=== PATIENT | female | born 1950 | race Caucasian/White ===

== ENCOUNTER → 2016-10-02 | Outpatient (CLI) | payer OTHER | LOC: C.PATHSPEC 14:05 | PROVIDERS: ATTEND Obstetrics & Gynecology | DX: N76.2 Acute vulvitis (principal) ==

== ENCOUNTER → 2016-10-02 | Outpatient (CLI) | payer OTHER ==
[2016-10-02 14:58] LABS: URINE APPEARANCE CLEAR (CLEAR); URINE BILIRUBIN NEG (NEG); URINE COLOR DK YELLOW; URINE NITRITE NEG (NEG); URINE SPECIFIC GRAVITY 1.018 (1.000-1.030); UROBILINOGEN NEG (NEG)
[2016-10-02 15:07] LABS: MANUAL MICROSCOPIC REQUIRED? NO; REVIEW REQ? NO
== END ==
LOC: C.LABSPEC 13:27
PROVIDERS: ATTEND Obstetrics & Gynecology
DX: N76.2 Acute vulvitis (principal)

== ENCOUNTER → 2017-08-07 | Outpatient (CLI) | payer OTHER ==
--- NOTE | 2017-08-07 14:57 | MAMMOGRAPHY REPORT ---
BILATERAL DIGITAL DIAGNOSTIC MAMMOGRAM TOMOSYNTHESIS WITH CAD AND TARGETED LEFT ULTRASOUND: 08/07/2017 CLINICAL HISTORY: The patient reports a palpable lump in her left axilla for some time. TECHNIQUE: Breast tomosynthesis in addition to standard 2D mammography was performed. Current study was also evaluated with a Computer Aided Detection (CAD) system. Bilateral CC and MLO 2-D and tomosy nthesis images were obtained. COMPARISON: Comparison is made to exam dated: 01/18/2016 mammogram - [facility]. BREAST COMPOSITION: There are scattered areas of fibroglandular density in both breasts. FINDINGS: A triangle marker layne the site of the palpable lump pointed out by the patient in the le ft axillary region. The area is only partially visualized on the mammograms due to the far superior location, however, no suspicious mass or other suspicious mammographic abnormalities are seen in this region. The remainder of both breasts are stable compared to the prior exam, without suspicious mas ses, calcifications, or areas of architectural distortion noted. Targeted ultrasound was performed of the site of the palpable lump pointed out by the patient in the left axillary region. Sonographically normal tissue is seen in this region, without evidence of a ma ss or other suspicious sonographic abnormality. IMPRESSION: ACR BI-RADS CATEGORY 2: BENIGN, TARGETED ULTRASOUND ACR BI-RADS CATEGORY 2: BENIGN No suspicious mammographic or sonographic abnormality at the site of the palpable left axillary lump pointed out by the patient. There is no mammographic or targeted sonographic evidence of malignancy. Recommend clinical follow-up and recommend routine bilateral screening mammograms in one year. The patient has been verbally notified of the results. Approximately 10% of breast cancers are not detected with mammography. A negative mammographic report should not delay biopsy if a clinically suggestive mass is present. Judy Mcqueen M.D. ah/:08/07/2017 11:57:32 Roll Clamp Operator: Monique ZAMORA)([place]), [facility] letter sent: Normal 1/2 BI-RADS Code: ACR BI-RADS Category 2: Benign Ultrasound BI-RADS: ACR BI-RADS Category 2: Benign
== END | disposition home or self-care (01) ==
LOC: C.MAMM 11:03
PROVIDERS: ATTEND Obstetrics & Gynecology
DX: N63.20 Unspecified lump in the left breast, unspecified quadrant (principal)

== ENCOUNTER 2017-09-27 12:35 | Emergency (ER) | payer OTHER ==
[~2017-09-27] VITALS: Ht 165.1 cm; Wt 85.0 kg
[2017-09-27 12:38] VITALS: TEMP 36.4; Ht 165.1 cm; Wt 85.0 kg
[2017-09-27] MEDS ORDERED: ESTR10TA PV (12:52)
--- NOTE | 2017-09-27 13:34 | DIAGNOSTIC IMAGING REPORT ---
RIGHT FIFTH TOE 3 VIEWS CLINICAL HISTORY: right 5th toe pain COMPARISON: None DISCUSSION: The toe is in slight flexion. There are mild degenerative changes. No fractures or subluxations are visualized. No destructive lesions are evident on conventional radiographic imaging. IMPRESSION: 1. No fractures or subluxations identified 2. No destructive lesions are visualized Electronically signed by: Sincere Tao M.D. 09/27/2017 1:33 PM Dictated Date/Time: 09/27/2017 1:32 PM
[2017-09-27] MEDS ORDERED: CEPH500C PO (13:43)
[2017-09-27 13:56] VITALS: BP 179/86; PULSE 78; O2SAT 97
--- NOTE | 2017-09-27 15:09 | EMERGENCY ROOM VISIT NOTE ---
History Report prepared by Malu: Ginny Stewart Under the Supervision of: Dr. Adrián Richardson M.D. First contact with patient: 13:05 Chief Complaint: TOE PAIN, INJURY Stated Complaint: R LITTLE TOE PAIN-BLUE AND PAINFUL ETC History of Present Illness The patient is a 66 year old female who presents to the Emergency Room with complaints of worsening right 5th toe pain starting several days ago. The pain worsened today while she was at [employer]. She currently rates her discomfort as a 6-7/10 in severity. She has not taken anything for her pain. She reports that her toe has been cold and red/purple. She has not worn any tight shoes. She does not remember injuring her toe, but notes that she is very busy with her work and has to run around frequently. 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 She has had some urinary urgency recently which she attributes to drinking coffee and then sitting at her desk doing work for long periods of time. Her blood pressure has been higher than usual. Source of History: patient Onset: several days ago Position: toe(s) (right 5th) Symptom Intensity: 6-7/10 Timing: worsening Associated Symptoms: + urinary symptoms Note: Pt reports toe is cold and red/purple. Review of Systems See HPI for pertinent positives & negatives. A total of 6 systems reviewed and were otherwise negative. Past Medical & Surgical Medical Problems: (1) No chronic problems Family History Diabetes mellitus Social History Marital Status: Current/Historical Medications Scheduled Cephalexin Monohydrate (Keflex), 500 MG PO QID Estradiol Vaginal (Vagifem), 1 TAB PV 2XWK Allergies Coded Allergies: No Known Allergies (Unverified , 09/27/17) Physical Exam Vital Signs Date Time Temp Pulse Resp B/P (MAP) Pulse Ox O2 Delivery O2 Flow Rate FiO2 09/27/17 13:56 78 16 179/86 97 09/27/17 12:38 36.4 81 18 188/98 96 Room Air Physical Exam GENERAL: Awake, alert, well-appearing, in no distress MUSCULOSKELETAL: Atraumatic. Chest examination reveals no tenderness. The back is symmetrical on inspection without obvious abnormality. There is no CVA tenderness to palpation. No joint edema. Erythematous, tender, and mildly swollen in the distal tip of the 5th toe of the right foot. Other toes normal in appearance, nontender. Great peripheral pulses, normal cap refill. NEURO: Normal sensorium. No sensory or motor deficits noted. SKIN: No rash or jaundice noted. Medical Decision & Procedures ER Provider Diagnostic Interpretation: Radiology results as stated below per my review and radiologist interpretation: RIGHT FIFTH TOE 3 VIEWS CLINICAL HISTORY: right 5th toe pain COMPARISON: None DISCUSSION: The toe is in slight flexion. There are mild degenerative changes. No fractures or subluxations are visualized. No destructive lesions are evident on conventional radiographic imaging. IMPRESSION: 1. No fractures or subluxations identified 2. No destructive lesions are visualized Electronically signed by: Sincere Tao M.D. 09/27/2017 1:33 PM Dictated Date/Time: 09/27/2017 1:32 PM ED Course 1313: The patient was evaluated in room D5. A complete history and physical exam was performed. 1340: I reevaluated the patient. Discussed results and discharge instructions: She verbalized understanding and agreement. The patient is ready for discharge. Medical Decision Triage Nursing notes reviewed and agree them. The patient's history was concerning for traumatic injury. Differential diagnosis: Etiologies such as fracture, dislocation, neurovascular compromise, cellulitis, soft tissue injury, as well as others were entertained. Physical examination: Consistent with an isolated fifth toe problem. Warm and well-perfused. No open wounds. ER treatment provided: No medication given. On reassessment the patient felt better. Imaging studies: Xrays as above. Given the warmth, redness and tenderness I am concerned about an early infection. Discussed prescription Keflex. Patient was in agreement. By the evaluation outlined above emergent etiologies such as fracture, dislocation, neurovascular compromise, compartment syndrome, as well as others were deemed relatively unlikely. The patient was informed about the findings as listed above. All questions were answered and she was pleased with the treatment. Return instructions were outlined and the patient was discharged in stable condition. Prescription management: Keflex Referral: The patient was referred to their primary care physician in 2 to 3 days for a recheck of your current condition. Medication Reconcilliation Current Medication List: was personally reviewed by me Blood Pressure Screening Patient's blood pressure: Elevated blood pressure Blood pressure disposition: Elevated BP felt to be situational Impression Primary Impression: Cellulitis of toe Scribe Attestation The scribe's documentation has been prepared under my direction and personally reviewed by me in its entirety. I confirm that the note above accurately reflects all work, treatment, procedures, and medical decision making performed by me. Departure Information Dispostion Home / Self-Care Prescriptions Cephalexin Monohydrate (Keflex) 500 Mg Cap 500 MG PO QID, #28 CAP Prov: Adrián Richardson MD 09/27/17 Referrals Kendy Neri D.O. Forms HOME CARE DOCUMENTATION FORM, IMPORTANT VISIT INFORMATION, WORK / SCHOOL INSTRUCTIONS Patient Instructions My [facility] Additional Instructions Cephalexin(Keflex) 500mg: Take one pill four times daily for 7 days for your skin infection. All antibiotics can cause diarrhea. If this occurs and you feel worse or it does not resolve in 1-2 days follow up with your doctor or return to the Emergency Department as this could be signs of serious underlying problems. Any medication can cause an allergic reaction, stop the pills immediately and return to the ER for rash, hives, breathing difficulties, or swelling. Acetaminophen(Tylenol) may be used for fever or pain. Use 1000mg every six hours as needed. Avoid using more than 4000mg in a 24 hour period. Warm compresses or soaks to the affected area 4 times daily for 15-20 minutes. Rest and drink plenty of fluids. Continue current medications. Return to the ER for severe pain, persistent fevers, spreading redness, or any worsening of your condition. Follow up with your primary physician within 2-3 days for a recheck of the current condition.
== END 2017-09-27 14:07 | disposition home or self-care (01) ==
LOC: C.EDB 12:36 → C.EDD 14:07
DX: L03.031 Cellulitis of right toe (principal)

== ENCOUNTER 2018-07-01 07:11 | Observation (INO) ==
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
--- NOTE | 2018-06-30 10:00 | History and Physical Report ---
DATE OF ADMISSION: 07/01/2018 She is being set up for a repair, left quadriceps musculature. CHIEF COMPLAINT: Left lower extremity pain. Orthopedic injury back in November of 2017. She had hard floor surface. She has progressed to have deficits, weakness and use of a walker and radiographic evidence of quadriceps muscle tear. PAST MEDICAL HISTORY: Positive for anesthesia, positive ulcers. PAST SURGICAL HISTORY: , cataract, tubal ligation. ALLERGIES: DUST AND MITES. FAMILY HISTORY: Heart disease and diabetes. SOCIAL HISTORY: She is single, 1 child. No tobacco. Very active. Never drinks alcohol. REVIEW OF SYSTEMS: Twelve system review, no fevers, sweats, chills. Positive fatigue, headaches. Ear, nose and throat negative. Denies chest pain, palpitations. No asthma, wheezing. No nausea, vomiting, urgency, frequency. No memory loss, confusion. She has joint pain, stiffness, weakness on the left. VITAL SIGNS: 5'5, 170. Blood pressure 130/80, pulse 80, respirations 16. HEENT: Essentially normal as well. CARDIAC: Normal S1, S2, no S3. LUNGS: Clear to auscultation. No rales, rhonchi, wheezing. MUSCULOSKELETAL: Her left lower extremity is profoundly weak. No obvious step off. No lack of strength and extension. LABORATORY DATA: Images demonstrate a quadriceps rupture. PLAN: Includes a left quadriceps repair.
[~2018-07-01 07:11] MED LIST: CEFAZOLIN 2000MG 2,000 MG/15 ML SYR IV SCH; LR 15ML/HR IV SCH; MISSING PHYSICIAN SIGNATURE ON ORDER SCH; SODIUM CHLORIDE 0.9% 1,000 ML IV SCH
[2018-07-01] MEDS ORDERED: ONDANSETRON INJ 2 MG/ML 2 ML VIAL ONE (08:21)
[2018-07-01] MEDS ORDERED: LIDOCAINE HCL 2% 2 ML VIAL/AMP(20MG/ML) INFIL ONE (08:21)
[2018-07-01] MEDS ORDERED: fentaNYL citrate 100 MCG/2 ML VIAL ONE ×3 (08:21→10:38)
[2018-07-01] MEDS ORDERED: PROPOFOL IV EMULSION 10 MG/ML 20 ML VIAL IV ONE (08:21)
[2018-07-01] MEDS ORDERED: MIDAZOLAM HCL 1 MG/ML 2ML VIAL ONE (08:21)
[2018-07-01] MEDS ORDERED: DEXAMETHASONE SOD INJ 4 MG/ML VIAL ONE (08:21)
[2018-07-01] MEDS ORDERED: ONDANSETRON INJ 2 MG/ML 2 ML VIAL IV PRN ×2 (08:31→12:41)
[2018-07-01] MEDS ORDERED: ePHEDrine sulfate 50 MG/ML AMP IV PRN (08:31)
[2018-07-01] MEDS ORDERED: ATROPINE SULFATE 0.1 MG/ML 10ML SYR IV PRN (08:31)
--- NOTE | 2018-07-01 08:49 | History & Physical Bridge Note ---
Date of Service July 01, 2018 History & Physical Bridge Note I have examined the patient, reviewed the History & Physical and in the interval since the performance of the History & Physical I have noted the following changes of clinical significance: no changes noted
[2018-07-01] MEDS ORDERED: ePHEDrine sulfate 50 MG/ML SYR ONE (09:36)
[2018-07-01] MEDS ORDERED: LABETALOL HCL IV 5 MG/ML 20ML IV ONE ×2 (10:17→10:51)
--- NOTE | 2018-07-01 10:45 | Post Operative Brief Note ---
Immediate Post Op Note v1 Date of Surgery July 01, 2018 Pre & Post Diagnosis Operation Date: 07/01/18 09:20 Pre-Op Diagnosis: Left Quadriceps Tear Post-Op Diagnosis: Left Quadriceps Tear Procedure Operation Date: 07/01/18 09:20 Actual Procedures p Left Quadriceps Repair(Left) - Adrián Gaines DO Surgeon Adirán Gaines DO [employer] Worker deb Estimated Blood Loss 40 Findings Consistent with Post-Op Diagnosis
[2018-07-01] MEDS: fentaNYL citrate 100 MCG/2 ML VIAL IV PRN ×4 (10:55→11:10)
[2018-07-01] MEDS ORDERED: HydrALAZINE HCL 20 MG/ML VIAL ONE (11:11)
[2018-07-01] MEDS ORDERED: HydrALAZINE HCL 20 MG/ML VIAL IV ONE (11:18)
--- NOTE | 2018-07-01 11:44 | Anesthesiology Progress Note ---
Date of Service July 01, 2018 Anesthesia Post Procedure Vital Signs Vital Signs: Temp Pulse Pulse Resp BP Pulse Ox 07/01/18 11:35 80 14 178/89 H 98 07/01/18 11:25 80 13 195/111 H 97 07/01/18 11:15 82 16 188/118 H 97 07/01/18 11:05 81 24 202/110 H 98 07/01/18 10:55 79 20 208/112 H 95 07/01/18 10:45 97.7 F 85 21 195/122 H 94 07/01/18 07:49 97.9 F 77 18 165/93 H 97 Pain Intensity Left Leg: Pain Intensity: 9 Notes Mental Status: alert / awake / arousable and participated in evaluation Patient Amnestic to Procedure: Yes Nausea / Vomiting: adequately controlled Pain: adequately controlled Airway Patency, RR, SpO2: stable & adequate BP & HR: stable & adequate Hydration State: stable & adequate Anesthetic Complications: no major complications apparent and Pt Satisfied with anesthetic care
--- NOTE | 2018-07-01 11:54 | Operative Report ---
DATE OF OPERATION: 07/01/2018 PREOPERATIVE DIAGNOSIS: Partial tear quadriceps muscle, failure of conservative measures. POSTOPERATIVE DIAGNOSIS: Partial tear quadriceps muscle, failure of conservative measures. PROCEDURE: Repair of the quadriceps muscle. DESCRIPTION OF PROCEDURE: The patient was taken to the operating room and general intubated anesthetic provided to the patient, placed and kept supine, prepped and draped sterile. We did not use a tourniquet. We made a skin incision, fascial incision, came right down on the quadriceps mechanism. There was no obvious tear. It was an undersurface tear of the quadriceps mechanism. There was a slight disruption on the medial aspect thereof and that was reinforced as well. We made 3-4 drill holes into the patella. We did a modified Krystal suture through the quadriceps muscle pulling out superior over the patella, tying it firmly. We used #5 FiberWire. We also reinforced then with #1 Vicryl suture. We irrigated thoroughly. We closed the subcuticular layer with 2-0, staple gun on the skin, sterile dressing applied. A large Jayy bandage applied and a knee immobilizer applied. The patient extubated to PACU stable. I attest to the content of the Intraoperative Record and any orders documented therein. Any exception s are noted below.
[2018-07-01] MEDS ORDERED: HYDROmorphone INJ 0.5 MG/0.5 ML SYR ONE (12:01)
[2018-07-01] MEDS ORDERED: HYDROmorphone INJ 0.5 MG/0.5 ML SYR IV STA (12:13)
[2018-07-01] MEDS ORDERED: MAGNESIUM HYDROXIDE SUSP 30 ML UDC PO PRN (12:41)
[2018-07-01] MEDS ORDERED: BISACODYL 10 MG SUPP PR PRN (12:41)
[2018-07-01] MEDS ORDERED: HYDROmorphone INJ 0.5 MG/0.5 ML SYR IV PRN (12:54)
[2018-07-01] MEDS: OXYCODONE HCL IR 5 MG TAB (IMMEDIATE RELEASE) PO PRN ×3 (13:11→21:59)
[2018-07-01] MEDS: POTASSIUM CHLORIDE 10 MEQ in SODIUM CHLORIDE 0.9% 1000ML 1,000 ML IV SCH ×2 (13:18→22:34)
[2018-07-01] MEDS: CEFAZOLIN 2000MG 2,000 MG/15 ML SYR IV SCH ×2 (13:18→21:56)
[2018-07-01] MEDS: ACETAMINOPHEN 1,000 MG/100 ML VIAL IV SCH ×2 (13:45→21:55)
[2018-07-01] MEDS: KETOROLAC TROMETHAMINE 15 MG/ML VIAL IV PRN (15:19)
[2018-07-01] MEDS: DOCUSATE SODIUM 100 MG CAP PO SCH (21:57)
[2018-07-02] MEDS: KETOROLAC TROMETHAMINE 15 MG/ML VIAL IV PRN ×2 (00:18→18:21)
[2018-07-02] MEDS: ACETAMINOPHEN 1,000 MG/100 ML VIAL IV SCH ×2 (05:08→13:53)
--- NOTE | 2018-07-02 07:54 | Anesthesiology Progress Note ---
Date of Service July 02, 2018 Anesthesia Post Procedure Vital Signs Vital Signs: Temp Pulse Pulse Resp BP Pulse Ox 07/02/18 04:23 37.0 C 82 18 130/76 95 07/01/18 23:30 36.8 C 97 H 17 168/89 H 94 07/01/18 19:53 36.7 C 68 20 126/78 94 07/01/18 15:11 36.6 C 100 H 22 138/84 96 07/01/18 14:15 101 H 18 147/85 H 102 H 07/01/18 13:15 104 H 18 150/93 H 96 07/01/18 12:45 100 H 18 168/90 H 100 07/01/18 12:15 36.8 C 103 H 18 172/95 H 98 07/01/18 12:00 88 20 173/93 H 97 07/01/18 11:45 36.8 C 96 H 14 165/94 H 97 07/01/18 11:35 80 14 178/89 H 98 07/01/18 11:25 80 13 195/111 H 97 07/01/18 11:15 82 16 188/118 H 97 07/01/18 11:05 81 24 202/110 H 98 07/01/18 10:55 79 20 208/112 H 95 07/01/18 10:45 36.5 C 85 21 195/122 H 94 Notes Mental Status: alert / awake / arousable and participated in evaluation Patient Amnestic to Procedure: Yes Nausea / Vomiting: adequately controlled Pain: adequately controlled Airway Patency, RR, SpO2: stable & adequate BP & HR: stable & adequate Hydration State: stable & adequate Anesthetic Complications: no major complications apparent and Pt Satisfied with anesthetic care
[2018-07-02] MEDS: OXYCODONE HCL IR 5 MG TAB (IMMEDIATE RELEASE) PO PRN ×2 (08:12→13:51)
[2018-07-02] MEDS: DOCUSATE SODIUM 100 MG CAP PO SCH (08:12)
--- NOTE | 2018-07-02 08:35 | Discharge Summary ---
DATE OF DISCHARGE: 07/02/18 SUBJECTIVE: She is alert, oriented. Minimal complaints of pain, taking p.o. Up ambulatory. No issues. Uneventful hospital course. ASSESSMENT: Status post quadriceps tendon repair. PLAN: She will be discharged home today. She has prescription on her chart. Instructions, precautions provided. She has a walker. She has a followup appointment.
--- NOTE | 2018-07-26 10:40 | Coding Letter ---
A supporting diagnosis is required for the test/procedure performed on this patient in order for us to be reimbursed by the patient's insurance. Please provide a supporting diagnosis for the following test/procedure listed below next to the test name along with your signature. *If there is no additional diagnosis for this patient that would support the following test/procedure please document that below next to the test/procedure. Test(s)/Procedure(s) that require a supporting diagnosis: * [id number] VITAMIN D ASSAY DIAGNOSIS: DATE OF SERVICE: 07/01/18 Provider Signature: Date: Thank you Randal Cosme [facility] Information Management Once completed, please kindly fax back to [phone] For questions please call [phone] [email or web address]
== END 2018-07-02 18:30 | disposition home or self-care (01) ==
LOC: 3E 07:11 → ASU 07:11